=== PATIENT | male | born 1990 | race Caucasian/White ===

== ENCOUNTER 2018-06-30 09:49 | Emergency (ER) | payer MEDICAID ==
[2018-06-30 10:05] VITALS: BP 128/76
--- NOTE | 2018-07-01 12:49 | UC ---
Course/Dx - Diagnoses Provider Diagnoses: Patient left without being seen Discharge - Sign-Out/Discharge Documenting (check all that apply): Post-Discharge Follow Up All imaging exams completed and their final reports reviewed: No Studies - Discharge Plan Disposition: LEFT WITHOUT BEING SEEN Referrals: No Primary Care Phys,NOPCP [Primary Care Provider] - - Billing Disposition and Condition Disposition: Left Without Being Seen
== END 2018-06-30 10:52 | disposition left against medical advice (07) ==
LOC: UCCORT 09:49
DX: R42 Dizziness and giddiness (principal); R11.0 Nausea; S09.90XA Unspecified injury of head, initial encounter; X58.XXXA Exposure to other specified factors, initial encounter; Y92.9 Unspecified place or not applicable; Z53.21 Procedure and treatment not carried out due to patient leaving prior to being seen by health care provider

== ENCOUNTER 2018-11-28 14:51 | Emergency (ER) | payer SELFPAY | END 2018-11-28 16:05 | disposition left against medical advice (07) | LOC: UCCORT 14:51 | DX: K08.9 Disorder of teeth and supporting structures, unspecified (principal); Z53.21 Procedure and treatment not carried out due to patient leaving prior to being seen by health care provider ==